=== PATIENT | female | born 1980 | race Caucasian/White ===

== ENCOUNTER → 2017-10-05 08:50 | Outpatient (CLI) | payer MEDICARE, SELFPAY ==
[2017-10-05 09:58] LABS: Hematocrit 43.8 % (37-47); Hemoglobin 14.7 g/dl (12.0-15.0); Mean Corp Hgb Conc 33.6 g/gl (32-36); Mean Corpuscular Hgb 28.8 pg (27.0-32.0); Mean Corpuscular Volume 85.9 fL (81-99); Mean Platelet Vol. 9.7 fl (6.2-12.0); Platelet Count 275 K/mm3 (150-450); RBC Distribution Width SD 40.5 fl (35.1-43.9); White Blood Count 5.7 K/mm3 (4.4-11.0)
[2017-10-05 10:00] LABS: Scan Indicated on CBC? Y/N NO
[2017-10-05 10:09] LABS: Prothrombin Time (Protime)PT. 12.8 SECONDS (11.7-14.9)
[2017-10-05 10:30] LABS: ALB/GLOB Ratio 1.1 RATIO (0.9-2.4); AST(SGOT) 29 U/L (15-37); Alanine Aminotransfer ALT/SGPT 56 U/L (13-56); Albumin, Serum 4.3 g/dL (3.2-5.0); Alkaline Phosphatase 57 U/L (45-117); Anion Gap 5 (5-15); BUN 9 mg/dL (7-18); BUN/Creat Ratio 9.8 RATIO (10-20); Calcium,Total 9.2 mg/dL (8.5-10.1); Chloride 104 mmol/L (98-107); Creatinine, Serum 0.92 mg/dL (0.55-1.02); EST Glomerular Filtration Rate 73 mL/min (>60); Est Glom Filt Rate - Afr Amer 89 mL/min (>60); Glucose 89 mg/dL (74-106); Potassium 4.9 mmol/L (3.5-5.1); Protein, Total 8.3 g/dL (6.4-8.2); Sodium Level 140 mmol/L (136-145)
[2017-10-05 10:34] LABS: Hemoglobin A1c 5.7 % (4.2-6.3)
[2017-10-05 11:17] LABS: HIV - WCH Non-Reactive (Nonreactive)
[2017-10-09 11:36] LABS: Comment 3 (.); HEPATITIS B SURFACE AG Negative (Negative); Hepatitis A AB, Total Negative (Negative); Hepatitis A IgM Antibody Negative (Negative); Hepatitis B Core AB IgM Negative (Negative); Hepatitis B Core Ab Total Negative (Negative); Hepatitis C Ab >11.0 s/co ratio (0.0-0.9)
[2017-10-09 15:25] LABS: HCV log 10 6.942 (.); Hep B Surface Antibodies Reactive (.)
[2017-10-09 15:26] LABS: Hepatitis C Genotype 3
== END ==
PROVIDERS: Family Provider Internal Medicine; PCP Internal Medicine; Visit Provider Nurse Practitioner Family
DX: B19.20 Unspecified viral hepatitis C without hepatic coma (principal); R73.03 Prediabetes; R42 Dizziness and giddiness
CPT/HCPCS: 36415; 80053; 83036; 85027; 85610; 86703; 86704; 86705; 86706; 86708; 86709; 86803; 87340; 87522; 87902